=== PATIENT | female | born 1975 | race Caucasian/White ===

== ENCOUNTER 2016-12-12 14:02 | Emergency (ER) | payer OTHER | END 2016-12-12 18:27 | disposition home or self-care (01) | LOC: ER1 14:02 | DX: S09.90XA Unspecified injury of head, initial encounter (principal); S50.12XA Contusion of left forearm, initial encounter; S60.411A Abrasion of left index finger, initial encounter; S60.312A Abrasion of left thumb, initial encounter; Y04.2XXA Assault by strike against or bumped into by another person, initial encounter | CPT/HCPCS: 70450; 72125; 73090; 73130; 84703; 99284 ==

== ENCOUNTER 2021-07-10 17:07 | Emergency (ER) | payer OTHER ==
[2021-07-10 17:53] LABS: HEMOGLOBIN 12.5 gm/dl (12.3-15.3); RED BLOOD COUNT 3.84 M/UL (4.00-5.10); WHITE BLOOD COUNT 8.9 K/UL (4.5-11.0)
[2021-07-10 18:37] LABS: BUN/CREATININE RATIO 36 (0-10)
[2021-07-10] MEDS ORDERED: PYRIDIUM200 MG PO (18:49)
[2021-07-10] MEDS ORDERED: MACROBID 100 M100 MG PO (18:49)
== END 2021-07-10 18:03 | disposition home or self-care (01) ==
LOC: ER1 17:07
PROVIDERS: Nurse Practitioner
DX: N39.0 Urinary tract infection, site not specified (principal); R07.89 Other chest pain; F17.200 Nicotine dependence, unspecified, uncomplicated
CPT/HCPCS: 71045; 80048; 81001; 82550; 82553; 83874; 84484; 85025; 93005; 99284